=== PATIENT | female | born 1970 | race Caucasian/White ===

== ENCOUNTER 2022-07-15 20:00 | Inpatient (IN) | payer OTHER, SELFPAY ==
[2022-07-15] VITALS (22 sets, daily range): BP systolic 170–189; BP diastolic 85–128; PULSE 87–104; RESP 12–29; TEMP 36.9; O2SAT 97–100
--- NOTE | ~2022-07-15 | XR_ITS ---
EXAMINATION: XR chest 2V 07/15/2022 20:45 INDICATION: Shortness of breath. History of CHF. PROCEDURE: 2 view chest COMPARISON: No prior studies for comparison. FINDINGS: The lungs are clear. The cardiomediastinal silhouette is within normal limits. There are no pleural effusions. There is no pneumothorax suspected. IMPRESSION: 1: NO ACUTE CARDIOPULMONARY DISEASE. Reviewed, dictated and finalized at location A. 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
--- NOTE | ~2022-07-15 | US_ITS ---
US renal BI 07/16/2022 09:21 Procedure: Realtime transabdominal ultrasound of the kidneys and bladder. Indication: Acute renal insufficiency Comparison: No prior studies for comparison. Findings: Renal echotexture is normal bilaterally without hydronephrosis, contour deforming mass or r enal calculus. The right kidney measures 13.8 cm and left kidney measures 13.4 cm. Bladder within no rmal limits. Impression: 1: Unremarkable renal ultrasound. No stones, masses or hydronephrosis. Reviewed, dictated and finalized at location A. MOLDER Impression: 1: Unremarkable renal ultrasound. No stones, masses or hydronephrosis.
--- NOTE | 2022-07-15 20:09 | ECG_ITS ---
Measurements Intervals [place] Rate: 85 P: 57 MS: 161 QRS: 45 QRSD: 106 T: 42 QT: 389 QTc: 465 Interpretive Statements SINUS RHYTHM BASELINE ARTIFACT NONSPECIFIC ST ABNORMALITY BORDERLINE ECG NO PREVIOUS ECG AVAILABLE FOR COMPARISON Electronically Signed On 07-16-2022 14:02:37 SURVEILLANCE ANALYST by Lucho Morales M.D.
--- NOTE | 2022-07-15 20:26 | ED.GENADULT ---
HPI - General Adult General Chief complaint: Shortness of Breath/Dyspnea Stated complaint: SOB Time Seen by Provider: 07/15/22 20:13 Source: RN notes reviewed History of Present Illness HPI narrative: Patient presents emergency department from home via EMS for shortness of breath. Patient states has been feeling short of breath for the past 3 days. States that shortness of breath is associated with some chest pain described as a heaviness she states she is had 2 episodes of chest pain today that developed last approximately 20 minutes but denies any current chest pain states she has had no cough she denies any fever states she has been having swelling in her legs patient does have a history of congestive heart failure states she is taking Lasix and has not missed any doses Related Data Allergies Allergy/AdvReac Type Severity Reaction Status Date / Time codeine Allergy Unknown Verified 11/26/08 12:40 hydrocodone Allergy Unknown Verified 11/26/08 12:40 Review of Systems Review of Systems: Gen.: Denies fevers or chills ENT: Denies congestion Respiratory: Reports shortness of breath CV: Reports chest pain GI: Denies abdominal pain nausea, emesis or diarrhea Musculoskeletal: Denies back pain or muscle pain Neuro: Denies numbness, tingling, weakness or focal weakness Skin: Denies rash Except as documented, all other systems reviewed and negative [facility] Past Medical History Medical History CHF (congestive heart failure) Social History Social History Smoking status: Never smoker Exam Narrative: APPEARANCE: No acute distress, nontoxic, resting in bed EYES: EOMI HEENT: Normocephalic, atraumatic, OMM RESPIRATORY: No respiratory distress Clear to auscultation bilaterally with no rhonchi wheezing or rales. CARDIOVASCULAR: Regular rate and rhythm without murmurs rubs or gallops. ABDOMINAL: Soft, nontender, nondistended, no rebound or guarding MUSCULOSKELETAl: Moves all extremities. No clubbing, cyanosis 3+ edema of the bilateral lower extremities NEURO: Awake and alert. Following commands, speech normal, no focal deficits SKIN:: Warm, dry. No rashes lesions or abrasions PSYCHIATRIC: Normal affect/mood, Course Course Emergency Course: Discussed with Dr. Valentin agrees with admission Discussed with Dr. Morales agrees with consult Discussed with patient and family results of workup and diagnosis. Discussed need for admission. Patient and family understand and agree to current treatment plan Vital Signs Vital signs: Vital Signs Temperature 98.5 F 07/15/22 20:09 Pulse Rate 94 07/15/22 20:09 Respiratory Rate 14 07/15/22 20:09 Blood Pressure 177/128 H 07/15/22 20:09 Pulse Oximetry 100 07/15/22 20:09 Oxygen Delivery Room Air 07/15/22 20:09 Temperature 98.5 F 07/15/22 20:09 Pulse Rate 96 07/15/22 20:28 Respiratory Rate 14 07/15/22 20:09 Blood Pressure 177/128 H 07/15/22 20:09 Pulse Oximetry 100 07/15/22 20:09 Oxygen Delivery Room Air 07/15/22 20:29 Medical Decision Making Vital Signs Vital Signs: Vital Signs Temperature 98.5 F 07/15/22 20:09 Pulse Rate 94 07/15/22 20:09 Respiratory Rate 14 07/15/22 20:09 Blood Pressure 177/128 H 07/15/22 20:09 Pulse Oximetry 100 07/15/22 20:09 Oxygen Delivery Room Air 07/15/22 20:09 Temperature 98.5 F 07/15/22 20:09 Pulse Rate 96 07/15/22 20:28 Respiratory Rate 14 07/15/22 20:09 Blood Pressure 177/128 H 07/15/22 20:09 Pulse Oximetry 100 07/15/22 20:09 Oxygen Delivery Room Air 07/15/22 20:29 Lab Data 07/15/22 20:25 07/15/22 20:25 Labs: Lab Results 07/15/22 07/15/22 07/15/22 Range/Units 20:25 20:25 20:25 WBC 9.9 (4.5-10.0) K/mm3 RBC 2.73 L (4.2-5.4) M/mm3 Hgb 7.7 L (12.0-15.0) g/dL Hct 25.5 L (37.0-47.0) % MCV 93.
[2022-07-15 20:33] LABS: Basophils Absolute Auto 0.1 K/mm3 (0.0-0.1); Basophils Percent Auto 0.6 % (0.2-1.2); Eosinophils Absolute Auto 0.1 K/mm3 (0-0.3); Eosinophils Percent Auto 1.4 % (0-4.4); Hematocrit 25.5 % (37.0-47.0); Hemoglobin 7.7 g/dL (12.0-15.0); Immature Granulocyte Absolute 0.02 K/mm3 (0.00-0.031); Immature Granulocyte Percent A 0.2 % (0-0.5); Lymphocytes Absolute Auto 2.74 K/mm3 (0.9-3.2); Lymphocytes Percent Auto 27.8 % (18.3-44.2); Mean Corpuscular HGB Conc 30.2 g/dl (32-36); Mean Corpuscular Hemoglobin 28.2 pg (26-34); Mean Corpuscular Volume 93.4 fl (80-100); Mean Platelet Volume 11.4 fl (7.4-10.4); Monocytes Percent Auto 10.1 % (2.6-8.5); Neutrophils Absolute Auto 5.9 K/mm3 (1.3-6.7); Neutrophils Percent Auto 59.9 % (45.5-73.1); Platelet Count Result 229 k/mm3 (150-375); Red Blood Count 2.73 M/mm3 (4.2-5.4); Red Cell Distribution Width 15.9 % (11.5-14.5); White Blood Count 9.9 K/mm3 (4.5-10.0)
[2022-07-15 20:41] LABS: Alanine Aminotransferase 13 U/L (6-35); Albumin Level 3.4 g/dL (3.5-5.1); Alkaline Phosphatase 92 U/L (38-126); Anion Gap 8 mmol/L (8-16); Aspartate Amino Transferase 22 U/L (14-36); Bilirubin,Total 0.3 mg/dL (0.2-1.3); Blood Urea Nitrogen 31 mg/dL (7-17); Calcium 7.7 mg/dL (8.4-10.2); Carbon Dioxide 25 mmol/L (22-30); Chloride 108 mmol/L (98-107); Estimated CRCL calculation 27 ml/min; Estimated Glomerular Filt Rate 16; Glucose 91 mg/dL (65-110); Potassium 3.8 mmol/L (3.4-5.0); Sodium 141 mmol/L (137-145)
[2022-07-15 20:45] LABS: INR 1.1; Prothrombin Time 13.3 Seconds (11.1-14.7)
[2022-07-15 20:46] LABS: Partial Thromboplastin Time 35.5 SECONDS (22.3-36.8)
[2022-07-15 20:53] LABS: NT Pro B Type Natriuretic Pept 10500 pg/mL (5-100); Troponin I 0.014 ng/mL (0.000-0.034)
--- NOTE | 2022-07-15 22:07 | PM.IMHP ---
H&P: HPI History of Present Illness Date/Time: 07/15/22 22:07 Chief Complaint: 51 years old female with past medical history of hypertension CHF COPD hyperlipidemia chronic narcotic dependence presented to the hospital with shortness of breath started 3 days ago worsening gradually worsening with activity patient also have chest tightness aggravated with activity no radiation patient complains of intermittent cough she also have lower extremity edema at the ER patient was found to have BNP more than 10,000 creatinine of 3 hemoglobin of 7 patient was admitted to the hospital for evaluation and treatment of CHF exacerbation associated with probable acute renal failure and anemia Review of Systems Review of Systems: Twelve system review was done negative except above [facility] Past Medical History Medical History CHF (congestive heart failure) Social History Social History Smoking status: Never smoker Meds Home Medications and Allergies Allergies Allergy/AdvReac Type Severity Reaction Status Date / Time codeine Allergy Unknown Verified 11/26/08 12:40 hydrocodone Allergy Unknown Verified 11/26/08 12:40 Vital Signs Vital Signs - 24 hr 07/15/22 20:09 07/15/22 20:28 07/15/22 20:29 Temperature 98.5 F Pulse Rate 94 96 Respiratory Rate 14 Blood Pressure 177/128 H Pulse Oximetry 100 Oxygen Delivery Room Air Room Air Exam Narrative: GENERAL: Short of breath. HEAD: Normocephalic, atraumatic. NECK: Supple. No adenopathy, no masses. RESPIRATORY: Decreased air entry bilateral positive bilateral basal crackles. CARDIOVASCULAR: Regular rate and rhythm without murmurs, rubs, or gallops. Peripheral pulses 2+ and equal bilaterally. ABDOMINAL: Soft, nontender, nondistended, no hepatosplenomegaly. Normoactive BS. MUSCULOSKELETAL: Bilateral lower extremity edema. SKIN: Warm, dry, normal color. No rashes. NEURO: Moves all extremities PSYCHIATRIC: Appropriate mood and affect. Normal interaction. H&P: Results Labs Labs: Short CBC 07/15/22 Range/Units 20:25 WBC 9.9 (4.5-10.0) K/mm3 Hgb 7.7 L (12.0-15.0) g/dL Hct 25.5 L (37.0-47.0) % Plt Count 229 (150-375) k/mm3 BMP 07/15/22 20:25 Sodium 141 Potassium 3.8 Chloride 108 H Carbon Dioxide 25 BUN 31 H Creatinine 3.00 H Glucose 91 Calcium 7.7 L Cardiac Enzymes 07/15/22 Range/Units 20:25 Troponin I 0.014 (0.000-0.034) ng/mL Liver Function 07/15/22 Range/Units 20:25 Total Bilirubin 0.3 (0.2-1.3) mg/dL AST 22 (14-36) U/L ALT 13 (6-35) U/L Alkaline Phosphatase 92 (38-126) U/L Albumin 3.4 L (3.5-5.1) g/dL Assessment and Plan Assessment and plan (1) CHF (congestive heart failure): Code(s): I50.9 - Heart failure, unspecified Status: Acute Assessment and Plan: Acute CHF exacerbation Monitor intake and output IV Lasix Follow troponin Check TSH Check echo Cardiology consult (2) Elevated serum creatinine: Code(s): R79.89 - Other specified abnormal findings of blood chemistry Status: Acute Assessment and Plan: Probable acute renal on top of chronic failure probably related to CHF exacerbation patient stated that she has history of chronic renal disease but she is not aware of for last creatinine number Ultmann renal function Give IV diuresis Check renal ultrasound Get old records (3) Anemia: Code(s): D64.9 - Anemia, unspecified Status: Acute Assessment and Plan: Unknown baseline creatinine Transfuse if hemoglobin below 7 Occult blood negative in ER Monitor H&H Check iron study B12 folic acid Give IV Protonix for now Clear liquid diet NPO after midnight (4) Hypertension: Code(s): I10 - Essential (primary) hypertension Status: Acute Assessment and Plan: Pending home medication re
--- NOTE | 2022-07-15 22:21 | PCRCNOTE ---
Pt refused breathing TX.
[2022-07-15] MEDS: ASPIRIN 81 MG CHEWABLE TABLET 324 MG PO (22:54)
[2022-07-15] MEDS: ACETAMINOPHEN 325 MG TABLET 650 MG PO (22:56)
[2022-07-15] MEDS: FUROSEMIDE INJ 100 MG/10 ML VIAL 60 MG IV PUSH (22:56)
[2022-07-15] MEDS: PANTOPRAZOLE SODIUM IV 40 MG VIAL IV PUSH (22:58)
[2022-07-15 23:17] LABS: SARS-CoV-2 RNA PCR Negative
[2022-07-15 23:19] LABS: Appearance Urine Clear (Clear); Bilirubin Urine Negative (Negative); Blood Urine 2+ (Negative); Color Urine Yellow (Yellow); Glucose Urine UA Negative (Negative); Ketones Urine Negative (Negative); Leukocyte Esterase Ur Negative LEU/UL (Negative); Nitrate Urine Negative (Negative); Protein Urine 3+ mg/dL (Negative); Urobilinogen Urine 0.2 mg/dL (<2.0)
[2022-07-15 23:24] LABS: Mucus Urine Rare /lpf; RBC Urine 21-50 /hpf (0-2); Squamous Epithelial Cell Urine Few /hpf (Few)
[2022-07-15 23:25] LABS: Add Urine Microscopic? YES
[2022-07-15 23:33] LABS: Potassium Urine Random 24.2 meq/L; Sodium Urine Random 124 meq/L
[2022-07-16] VITALS (30 sets, daily range): BP systolic 109–161; BP diastolic 63–98; PULSE 76–101; RESP 17–24; TEMP 36.3–36.6; O2SAT 92–100; BMI 41.9
[2022-07-16 00:39] LABS: Hematocrit 26.8 % (37.0-47.0); Hemoglobin 8.2 g/dL (12.0-15.0)
[2022-07-16 00:48] LABS: Creatine Kinase 78 U/L (30-135); Magnesium 2.2 mg/dL (1.6-2.3); Uric Acid 7.7 mg/dL (2.5-7.5)
[2022-07-16 01:03] LABS: Iron 40 ug/dL (37-170)
[2022-07-16 01:13] LABS: Percent Iron Saturation 18 % (20-50)
[2022-07-16 01:33] LABS: Troponin I 0.015 ng/mL (0.000-0.034)
--- NOTE | 2022-07-16 03:41 | ADMGEN ---
This patient, Stefany Fletcher, was admitted to IMU Room 206-01 on 07/16/22 at 0315. Patient/family oriented to hospital policies and general routines including ID bracelet, bed and alarms, visiting hours, pain management, procedures, bathroom and other care routines, personal items, smoking policy, room service/diet, and visiting hours. Information on how to activate the Rapid Response Team has been discussed. Patient/Family are encouraged to report perceived risks to care and to ask questions if they do not understand what they are told or what they should do.
[2022-07-16] MEDS: cefTRIAXone 2 GM in SODIUM CHLORIDE 0.9% IV 100 ML 200 ML IVPB (04:38)
[2022-07-16] MEDS: methylPREDNISolone SOD SUCC 40 MG VIAL IV PUSH ×3 (04:38→21:16)
[2022-07-16 05:09] LABS: Total Protein Urine Random > 600 mg/dL
[2022-07-16 05:13] LABS: Basophils Absolute Auto 0.1 K/mm3 (0.0-0.1); Basophils Percent Auto 0.6 % (0.2-1.2); Eosinophils Absolute Auto 0.1 K/mm3 (0-0.3); Eosinophils Percent Auto 1.7 % (0-4.4); Hematocrit 24.8 % (37.0-47.0); Hemoglobin 7.5 g/dL (12.0-15.0); Immature Granulocyte Absolute 0.02 K/mm3 (0.00-0.031); Immature Granulocyte Percent A 0.2 % (0-0.5); Lymphocytes Absolute Auto 2.97 K/mm3 (0.9-3.2); Lymphocytes Percent Auto 35.7 % (18.3-44.2); Mean Corpuscular HGB Conc 30.2 g/dl (32-36); Mean Corpuscular Hemoglobin 28.5 pg (26-34); Mean Corpuscular Volume 94.3 fl (80-100); Mean Platelet Volume 11.6 fl (7.4-10.4); Monocytes Absolute Auto 0.8 K/mm3 (0.1-0.6); Neutrophils Absolute Auto 4.3 K/mm3 (1.3-6.7); Neutrophils Percent Auto 51.8 % (45.5-73.1); Platelet Count Result 219 k/mm3 (150-375); Red Blood Count 2.63 M/mm3 (4.2-5.4); Red Cell Distribution Width 15.9 % (11.5-14.5); White Blood Count 8.3 K/mm3 (4.5-10.0)
[2022-07-16 05:23] LABS: Alanine Aminotransferase 11 U/L (6-35); Albumin Level 3.2 g/dL (3.5-5.1); Alkaline Phosphatase 78 U/L (38-126); Anion Gap 8 mmol/L (8-16); Aspartate Amino Transferase 17 U/L (14-36); Bilirubin,Total 0.3 mg/dL (0.2-1.3); Blood Urea Nitrogen 29 mg/dL (7-17); Calcium 7.7 mg/dL (8.4-10.2); Carbon Dioxide 24 mmol/L (22-30); Chloride 106 mmol/L (98-107); Estimated CRCL calculation 28 ml/min; Estimated Glomerular Filt Rate 16; Glucose 81 mg/dL (65-110); Potassium 3.4 mmol/L (3.4-5.0); Sodium 138 mmol/L (137-145)
[2022-07-16 05:33] LABS: Troponin I 0.019 ng/mL (0.000-0.034)
[2022-07-16] MEDS: carvediloL 25 MG TABLET PO ×2 (08:37→21:17)
[2022-07-16] MEDS: amLODIPine BESYLATE 5 MG TABLET 10 MG PO (08:37)
[2022-07-16] MEDS: CALCIUM CARBONATE (OSCAL) 500 MG TABLET PO (08:37)
[2022-07-16] MEDS: FAMOTIDINE 20 MG TABLET PO ×2 (08:38→21:17)
[2022-07-16] MEDS: CITALOPRAM HYDROBROMIDE 20 MG TABLET 40 MG PO (08:38)
[2022-07-16] MEDS: FERROUS SULFATE 324 MG TABLET PO (08:38)
[2022-07-16] MEDS: hydrALAZINE HCL 50 MG TABLET 100 MG PO ×2 (08:39→15:12)
[2022-07-16] MEDS: clonazePAM (*CRX) 0.5 MG TABLET PO ×2 (08:40→17:12)
--- NOTE | 2022-07-16 11:06 | PCRCNOTE ---
Window of time for administration has passed. See next scheduled administration.
--- NOTE | 2022-07-16 11:19 | PM.CNCAR ---
Assessment and Plan Assessment and plan (1) Hypertension: Code(s): I10 - Essential (primary) hypertension Status: Acute Assessment and Plan: Uncontrolled presentation secondary to noncompliance with medications as she has been abdomen for 5 days. Resume antihypertensive medical therapy. (2) CHF (congestive heart failure): Code(s): I50.9 - Heart failure, unspecified Status: Acute Assessment and Plan: Possible mild decompensation presentation clinically relatively euvolemic. ProBNP elevated due to uncontrolled hypertension, severe anemia, acute on chronic kidney disease, as well as component of possible mild decompensated heart failure. On proBNP is further elevated compared to previous from 06/23/2022 noted at 5402. Troponins negative. Symptoms are not related to decompensated heart failure secondary to acute coronary syndrome. I do not see a previous echocardiogram or documentation of EF. Obtain 2D echocardiogram to assess LV systolic and diastolic function, valve pathology, LV wall thickness and chamber size. Recommendation to follow after review. Patient states she already has outpatient follow-up set up with Cardiology [facility]. She will keep this follow-up. Continue home cardiovascular medical therapy. No further invasive testing indicated at this time. May give dose of IV Lasix today transition back to oral regimen. Monitor input and output, daily weight. Low-sodium diet less than 2 g daily. BP control critical as is compliance with medications. (3) Acute kidney injury superimposed on chronic kidney disease: Code(s): N17.9 - Acute kidney failure, unspecified; N18.9 - Chronic kidney disease, unspecified Status: Acute Assessment and Plan: Creatinine 06/25/2022 3.0 06/01/2022 creatinine 2.3-2.5. Overall, renal function worse from May but stable over the past month. Defer to primary service and Nephrology. Avoid nephrotoxic agents. Counseled on avoidance of NSAID therapy as much as possible due to worsening renal function, hypertension and CHF risk. (4) Anemia: Code(s): D64.9 - Anemia, unspecified Status: Acute Assessment and Plan: Chronic severe anemia. No evidence for active bleed. Defer management to primary service. (5) COPD (chronic obstructive pulmonary disease): Code(s): J44.9 - Chronic obstructive pulmonary disease, unspecified Status: Acute Assessment and Plan: Per primary service. Clinically stable on room air. Outpatient sleep study. Follow-up with pulmonology as previously recommended. (6) Rheumatoid arthritis: Code(s): M06.9 - Rheumatoid arthritis, unspecified Status: Acute Assessment and Plan: Management per primary service. (7) Noncompliance: Code(s): Z91.199 - Patient's noncompliance with other medical treatment and regimen due to unspecified reason Status: Acute Assessment and Plan: Patient must remain compliant with medications, follow-up and recommendations. (8) Anxiety: Code(s): F41.9 - Anxiety disorder, unspecified Status: Acute Assessment and Plan: Per primary service. History of Present Illness History of Present Illness Consult date/time: Date of service: 07/16/22 11:19 Requesting physician: Sonny Valentin M.A., MD Consult reason: shortness of breath Reason For Visit: CHF,Chest Pain,Acute Renal Insufficiency,Anemia Narrative: Patient is a 51-year-old female with a history of chronic pain, COPD, hypertension, history of noncompliance, rheumatoid arthritis, panic disorder/anxiety, morbid obesity previously admitted to [facility] due to uncontrolled hypertension found to be severely anemic hemoglobin around 8, CKD creatinine 2.3-2.5, BNP over 5000, negative troponin who was initially treated with azithromycin for suspected pneumonia subsequently stopped and treated for COPD exacerbation. She was given or
[2022-07-16] MEDS: FUROSEMIDE INJ 100 MG/10 ML VIAL 60 MG IV PUSH ×2 (11:22→17:11)
[2022-07-16] MEDS: PANTOPRAZOLE SODIUM IV 40 MG VIAL IV PUSH ×2 (11:22→17:11)
[2022-07-16] MEDS: IPRATROPIUM BR 0.02% INH SOLN 0.5 MG/2.5 ML VIAL INHALATION (15:21)
[2022-07-16] MEDS: ALBUTEROL SULFATE NEB 2.5 MG/3 ML INH INHALATION (15:21)
--- NOTE | 2022-07-16 17:19 | PM.IMPN ---
Progress Note: A&P Assessment and Plan (1) CHF (congestive heart failure): Code(s): I50.9 - Heart failure, unspecified Status: Acute Assessment and Plan: Acute CHF exacerbation Monitor intake and output IV Lasix Follow troponin Check TSH Check echo Cardiology consult 07/16/2022 interval history: morbidly obese patient presented emergency department with complaint shortness of breath and elevated BNP concerning for congestive heart failure however seen by cardiology does not suspect as patient is euvolemic most likely elevated BNP stemming from chronic kidney disease, uncontrolled hypertension to further evaluate will do cardiac echo and further recommendation to follow, patient with acute on chronic kidney disease, renal ultrasound is essentially normal will consult gas combustion engineer for further recommendation. (2) Elevated serum creatinine: Code(s): R79.89 - Other specified abnormal findings of blood chemistry Status: Acute Assessment and Plan: Probable acute renal on top of chronic failure probably related to CHF exacerbation patient stated that she has history of chronic renal disease but she is not aware of for last creatinine number Ultmann renal function Give IV diuresis Check renal ultrasound Get old records (3) Anemia: Code(s): D64.9 - Anemia, unspecified Status: Acute Assessment and Plan: Unknown baseline creatinine Transfuse if hemoglobin below 7 Occult blood negative in ER Monitor H&H Check iron study B12 folic acid Give IV Protonix for now Clear liquid diet NPO after midnight (4) Hypertension: Code(s): I10 - Essential (primary) hypertension Status: Acute Assessment and Plan: Pending home medication reconciliation (5) COPD (chronic obstructive pulmonary disease): Code(s): J44.9 - Chronic obstructive pulmonary disease, unspecified Status: Acute Assessment and Plan: Acute COPD exacerbation nebulizer treatment steroid antibiotics (6) Chest pain: Code(s): R07.9 - Chest pain, unspecified Status: Acute Assessment and Plan: Serial troponin Cardiology consult Discussed with ER physician Probably related to CHF and anemia Follow echo results (7) Rheumatoid arthritis: Code(s): M06.9 - Rheumatoid arthritis, unspecified Status: Acute Assessment and Plan: Patient on steroid at home Subjective Date/time seen: 07/16/22 17:19 HPI Narrative 51 years old female with past medical history of hypertension CHF COPD hyperlipidemia chronic narcotic dependence presented to the hospital with shortness of breath started 3 days ago worsening gradually worsening with activity patient also have chest tightness aggravated with activity no radiation patient complains of intermittent cough she also have lower extremity edema at the ER patient was found to have BNP more than 10,000 creatinine of 3 hemoglobin of 7 patient was admitted to the hospital for evaluation and treatment of CHF exacerbation associated with probable acute renal failure and anemia 07/16/2022 interval history: morbidly obese patient presented emergency department with complaint shortness of breath and elevated BNP concerning for congestive heart failure however seen by cardiology does not suspect as patient is euvolemic most likely elevated BNP stemming from chronic kidney disease, uncontrolled hypertension to further evaluate will do cardiac echo and further recommendation to follow, patient with acute on chronic kidney disease, renal ultrasound is essentially normal will consult gas combustion engineer for further recommendation. Exam Narrative: morbidly obese Patient is comfortable, NAD HEENT: eyes are clear and none icteric LUNGS:CTA HEART: RR S1S2 ABD: BS+, Soft and nontender Lower extremities: no edema SKIN: nonjaundiced Neuro: grossly intact. Objective Data Vital Signs Vital Signs: Vital Signs - 24 hr 07/15/22 20:0
[2022-07-16] MEDS: ATORVASTATIN 40 MG TABLET PO (21:16)
[2022-07-16] MEDS: traZODone HCL 50 MG TABLET PO (21:17)
[2022-07-16] MEDS: ACETAMINOPHEN 325 MG TABLET 650 MG PO (21:19)
--- NOTE | 2022-07-16 22:02 | ECHO_ITS ---
Patient Info Name: Stefany Fletcher Age: 51 years : 1970 Gender: Female Ht: 68 in Wt: 275 lbs BSA: 2.51 m2 HR: 72 bpm BP: 158 / 73 mmHg Heart Rhythm: Sinus Rhythm Exam Date: 07/16/2022 1:20 PM Exam Location: [facility] Patient Status: Inpatient Admit Date: 07/15/2022 Staff Ordering Physician: Sonny Valentin M.A., MD Billet Assembler: Amado Olivier RDCS Attending Provider: Sonny Valentin M.A., MD Referring Physician: Naveen MATTHEW; Exam Type: CA echo doppler color flow Study Info Indications R06.02 - Shortness of breath Complete two-dimensional, color flow and Doppler transthoracic echocardiogram is performed. Summary 1. Complete two-dimensional, color flow and Doppler transthoracic echocardiogram is performed. 2. Left ventricular chamber dimension is normal. 3. Left ventricular systolic function is normal, estimated at 60-65%. 4. There is mildly increased left ventricular wall thickness. 5. Left ventricular septal wall motion is abnormal with septal motion related to bundle branch block. 6. The left ventricular diastolic function is grade II diastolic dysfunction. 7. E/e' 19.1 is moderately elevated. 8. There is no aortic valve stenosis. 9. There is trace mitral valve regurgitation. Left Ventricle Left ventricular chamber dimension is normal. Left ventricular systolic function is normal, estimated at 60-65%. There is mildly increased left ventricular wall thickness. Left ventricular septal wall motion is abnormal with septal motion related to bundle branch block. The left ventricular diastolic function is grade II diastolic dysfunction. E/e' 19.1 is moderately elevated. Right Ventricle Right ventricular chamber dimension is normal. Right ventricular systolic function is normal. Left Atria Left atrial chamber dimension is moderately enlarged. Right Atria Right atrial chamber dimension is mildly enlarged. Aortic Valve The aortic valve is not well visualized. There is no aortic valve stenosis. There is no aortic valve regurgitation. Pulmonic Valve The pulmonic valve is not well visualized. Mitral Valve The mitral valve has thickened leaflets. There is trace mitral valve regurgitation. There is severe mitral valve calcification. Tricuspid Valve The tricuspid valve leaflets are normal. There is trace tricuspid valve regurgitation. Unable to estimate PA systolic pressure due to poor spectral resolution of tricuspid regurgitant jet velocity. Pericardium/Pleural The pericardium appears epicardial fat pad. There is trivial pericardial effusion. Inferior Vena Cava Dilated inferior vena cava with <50% collapse upon inspiration consistent with elevated right atrial pressure, 10 mmHg. Aorta The aortic root size at the sinus of Valsalva is normal. There is mild aortic atherosclerosis. Left Ventricular Outflow Tract Name Value Normal LVOT 2D LVOT Diameter 2.0 cm LVOT Doppler LVOT Peak Gradient 9 mmHg LVOT Mean Gradient 5 mmHg LVOT VTI 33 cm LVO
[2022-07-16 22:46] LABS: Basophils Percent Auto 0.2 % (0.2-1.2); Hematocrit 26.3 % (37.0-47.0); Hemoglobin 8.2 g/dL (12.0-15.0); Immature Granulocyte Absolute 0.14 K/mm3 (0.00-0.031); Immature Granulocyte Percent A 1.5 % (0-0.5); Lymphocytes Absolute Auto 1.12 K/mm3 (0.9-3.2); Mean Corpuscular HGB Conc 31.2 g/dl (32-36); Mean Corpuscular Hemoglobin 28.9 pg (26-34); Mean Corpuscular Volume 92.6 fl (80-100); Mean Platelet Volume 11.5 fl (7.4-10.4); Monocytes Absolute Auto 0.1 K/mm3 (0.1-0.6); Monocytes Percent Auto 1.2 % (2.6-8.5); Neutrophils Absolute Auto 7.9 K/mm3 (1.3-6.7); Neutrophils Percent Auto 85.1 % (45.5-73.1); Platelet Count Result 260 k/mm3 (150-375); Red Blood Count 2.84 M/mm3 (4.2-5.4); Red Cell Distribution Width 15.6 % (11.5-14.5); White Blood Count 9.3 K/mm3 (4.5-10.0)
[2022-07-16 23:00] LABS: Magnesium 2.1 mg/dL (1.6-2.3)
[2022-07-17] VITALS (14 sets, daily range): BP systolic 142–164; BP diastolic 61–94; PULSE 65–91; RESP 16–22; TEMP 36.4–36.7; O2SAT 95–99
[2022-07-17] MEDS: cefTRIAXone 2 GM in SODIUM CHLORIDE 0.9% IV 100 ML 200 ML IVPB (03:36)
[2022-07-17] MEDS: methylPREDNISolone SOD SUCC 40 MG VIAL IV PUSH ×3 (03:36→17:47)
[2022-07-17] MEDS: CALCIUM CARBONATE (OSCAL) 500 MG TABLET PO (08:18)
[2022-07-17] MEDS: amLODIPine BESYLATE 5 MG TABLET 10 MG PO (08:18)
[2022-07-17] MEDS: carvediloL 25 MG TABLET PO ×2 (08:19→20:02)
[2022-07-17] MEDS: CITALOPRAM HYDROBROMIDE 20 MG TABLET 40 MG PO (08:19)
[2022-07-17] MEDS: FAMOTIDINE 20 MG TABLET PO ×2 (08:19→20:02)
[2022-07-17] MEDS: clonazePAM (*CRX) 0.5 MG TABLET PO ×2 (08:19→16:59)
[2022-07-17] MEDS: FERROUS SULFATE 324 MG TABLET PO (08:19)
[2022-07-17] MEDS: hydrALAZINE HCL 50 MG TABLET 100 MG PO ×3 (08:19→16:59)
[2022-07-17] MEDS: PANTOPRAZOLE SODIUM IV 40 MG VIAL IV PUSH ×2 (08:20→16:59)
[2022-07-17] MEDS: FUROSEMIDE INJ 100 MG/10 ML VIAL 60 MG IV PUSH (08:20)
[2022-07-17] MEDS: IPRATROPIUM BR 0.02% INH SOLN 0.5 MG/2.5 ML VIAL INHALATION ×2 (09:17→14:50)
[2022-07-17] MEDS: ALBUTEROL SULFATE NEB 2.5 MG/3 ML INH INHALATION ×2 (09:17→14:50)
[2022-07-17 10:39] LABS: Albumin Level 3.5 g/dL (3.5-5.1); Anion Gap 10 mmol/L (8-16); Blood Urea Nitrogen 46 mg/dL (7-17); Calcium 7.9 mg/dL (8.4-10.2); Carbon Dioxide 21 mmol/L (22-30); Chloride 106 mmol/L (98-107); Estimated CRCL calculation 27 ml/min; Estimated Glomerular Filt Rate 16; Glucose 180 mg/dL (65-110); Phosphorus 7.2 mg/dL (2.5-4.5); Potassium 4.4 mmol/L (3.4-5.0); Sodium 137 mmol/L (137-145)
--- NOTE | 2022-07-17 12:23 | PM.PNCARD ---
Progress Note: A&P Assessment and Plan (1) CHF (congestive heart failure): Code(s): I50.9 - Heart failure, unspecified Status: Acute Assessment and Plan: Patient appears to be clinically euvolemic at this time. Discontinue IV Lasix. Change to Lasix 80 mg p.o. daily. Monitor renal function electrolytes. Echocardiogram reviewed, preserved LV systolic function grade due to diastolic dysfunction mild LVH, unable to estimate PA systolic pressures. Dilated IVC. Patient will follow-up with [facility] for cardiology follow-up as an outpatient as previously set. Will see as needed. Please do not hesitate contact us with additional questions or concerns. Disposition per hospitalist service. (2) Hypertension: Code(s): I10 - Essential (primary) hypertension Status: Acute Assessment and Plan: Uncontrolled presentation secondary to noncompliance with medications as she has been abdomen for 5 days. Resume antihypertensive medical therapy. (3) Acute kidney injury superimposed on chronic kidney disease: Code(s): N17.9 - Acute kidney failure, unspecified; N18.9 - Chronic kidney disease, unspecified Status: Acute Assessment and Plan: Creatinine 06/25/2022 3.0 06/01/2022 creatinine 2.3-2.5. Overall, renal function worse from May but stable over the past month. Defer to primary service and Nephrology. Avoid nephrotoxic agents. Counseled on avoidance of NSAID therapy as much as possible due to worsening renal function, hypertension and CHF risk. Creatinine slightly increased 3.1. Nephrology consultation appreciated. (4) Anemia: Code(s): D64.9 - Anemia, unspecified Status: Acute Assessment and Plan: Chronic severe anemia. No evidence for active bleed. Defer management to primary service. H&H stable, improved. No indication for transfusion at this time. Discussed with the patient. She verbalized understanding and agreed. (5) COPD (chronic obstructive pulmonary disease): Code(s): J44.9 - Chronic obstructive pulmonary disease, unspecified Status: Acute Assessment and Plan: Per primary service. Clinically stable on room air. Outpatient sleep study. Follow-up with pulmonology as previously recommended. (6) Rheumatoid arthritis: Code(s): M06.9 - Rheumatoid arthritis, unspecified Status: Acute Assessment and Plan: Management per primary service. (7) Noncompliance: Code(s): Z91.199 - Patient's noncompliance with other medical treatment and regimen due to unspecified reason Status: Acute Assessment and Plan: Patient must remain compliant with medications, follow-up and recommendations. (8) Anxiety: Code(s): F41.9 - Anxiety disorder, unspecified Status: Acute Assessment and Plan: Per primary service. Subjective Date/time seen: Date of service: 07/17/22 12:23 Follow-up for uncontrolled hypertension, shortness of breath Patient feels well. She denies shortness of breath, dizziness, chest pain or palpitation. No new issues overnight. Edema is improved. She states she has no problems and is looking forward to discharge. She is apparently with awaiting placement. Sinus rhythm on telemetry. Review of Systems Review of Systems: All systems reviewed & are unremarkable except as noted in HPI and below Constitutional: Constitutional: Reports as per HPI and Reports no additional constitutional complaints Eyes: Eyes: Reports as per HPI and Reports no additional eye complaints ENT: Reports system reviewed and no additional complaints, except as documented and Reports as per HPI Cardiovascular: Cardiovascular: Reports as per HPI and Reports no additional cardiovascular complaints Respiratory: Respiratory: Reports as per HPI and Reports no additional respiratory complaints Gastrointestinal: Gastrointestinal: Reports as per HPI and Reports no additional gastrointestinal com
--- NOTE | 2022-07-17 12:54 | P.CONNP_ITS ---
Assessment and Plan Assessment and plan (1) CKD (chronic kidney disease): Code(s): N18.9 - Chronic kidney disease, unspecified Status: Chronic Assessment and Plan: * evidence of renal insufficiency/kidney disease that dates back to March 2022 * creatinine has ranged from 2.2 - 3.3mg/dl in that time frame * has seen several nephrologists in that time frame (Dr. Lara, Dr. Vidal, [facility], and Dr. Lara) * from review of electronic records, summary is as follows: * creatinine in June 2021 was normal (0.9mg/dl) * creatinine in March 2022 was 2.2mg/dl * creatinine 2.3 - 2.4mg/dl in April 2022 * creatinine 3.19mg/dl in May 2022 * creatinine 3.0 - 3.3mg/dl in June 2022 * extensive testing/serological work-up done on April 2022 * NORA/GBM Antibody/ANCA/ENVIRONMENTAL PROGRAMS SPECIALIST/Sjogren's (SSA/SSB)/García (ABBI)/Antiscleroderma- 70 Antibody -- all negative * Complement C3/Complement C4 -- negative * Cryoblobulin negative * Anti-PLA2R negative * 6.72 grams of proteinuria noted * no evidence of paraproteinemia by SPEP * known history of high dose NSAID use for the last several years * she is suppose to follow-up with Dr. Lara following her hospitalization at [facility] (from June 2022) * suspect hypertension and possibly chronic NSAID use to blame for CKD * given her nephrotic range proteinuria, consider renal biopsy for definitive diagonsis (could be done as an outpatient) * check CKD parameters (PTH, 25-OH Vitamin D...etc) * follow trend of repeat labs and UOP (2) Hypertension: Code(s): I10 - Essential (primary) hypertension Status: Chronic Assessment and Plan: * uncontrolled on admission * reports out of BP medications for ~ 5 days prior to presentation * BP doing better with restart of BP medications * would probably avoid overcontrol of BP for fear to causing renal hypoperfusion * follow trend of hemodynamics (3) Anemia: Code(s): D64.9 - Anemia, unspecified Status: Acute Assessment and Plan: * possibly related to CKD * evidence of iron deficiency by anemia studies * consider IV venofer while hospitalized * consider Epogen therapy * follow trend of H/H (4) CHF (congestive heart failure): Code(s): I50.9 - Heart failure, unspecified Status: Acute Assessment and Plan: * Echo here and at other hospitals demonstrate diastolic dysfunction with preserved EF * Cardiology recommendations noted * resumed of oral diuretics * follow I/Os and daily weights (5) Noncompliance: Code(s): Z91.199 - Patient's noncompliance with other medical treatment and regimen due to unspecified reason Status: Acute Assessment and Plan: * this was re-enforced to patient Long and extensive discussion (> 20 minutes) with patient regarding her renal dysfunction as well as review of her extensive electronic medical records over the last 4 months including her last 3 hospitalizations with subsequent testing/labs as outlined below. Would presume that she will follow-up with Dr. Lara since she saw him on her last hospitalization in June 2022. Will continue to follow. History of Present Illness Reason for Consult Consult date: 07/17/22 Reason for consult: chronic renal failure Chief Complaint Chief complaint: CHF,Chest Pain,Acute Renal Insufficiency,Anemia History of Present Illness Narrative: The patient is a 51-year-old female with a past medical history as outlined below who presented to [facility] Emergency
--- NOTE | 2022-07-17 12:54 | PM.CNNEP ---
Assessment and Plan Assessment and plan (1) CKD (chronic kidney disease): Code(s): N18.9 - Chronic kidney disease, unspecified Status: Chronic Assessment and Plan: evidence of renal insufficiency/kidney disease that dates back to March 2022 creatinine has ranged from 2.2 - 3.3mg/dl in that time frame has seen several nephrologists in that time frame (Dr. Lara, Dr. Vidal, [facility], and Dr. Lara) from review of electronic records, summary is as follows: creatinine in June 2021 was normal (0.9mg/dl) creatinine in March 2022 was 2.2mg/dl creatinine 2.3 - 2.4mg/dl in April 2022 creatinine 3.19mg/dl in May 2022 creatinine 3.0 - 3.3mg/dl in June 2022 extensive testing/serological work-up done on April 2022 NORA/GBM Antibody/ANCA/DINING CHAIR SEAT CUSHION TRIMMER/Sjogren's (SSA/SSB)/García (ABBI)/Antiscleroderma-70 Antibody -- all negative Complement C3/Complement C4 -- negative Cryoblobulin negative Anti-PLA2R negative 6.72 grams of proteinuria noted no evidence of paraproteinemia by SPEP known history of high dose NSAID use for the last several years she is suppose to follow-up with Dr. Lara following her hospitalization at [facility] (from June 2022) suspect hypertension and possibly chronic NSAID use to blame for CKD given her nephrotic range proteinuria, consider renal biopsy for definitive diagonsis (could be done as an outpatient) check CKD parameters (PTH, 25-OH Vitamin D...etc) follow trend of repeat labs and UOP (2) Hypertension: Code(s): I10 - Essential (primary) hypertension Status: Chronic Assessment and Plan: uncontrolled on admission reports out of BP medications for ~ 5 days prior to presentation BP doing better with restart of BP medications would probably avoid overcontrol of BP for fear to causing renal hypoperfusion follow trend of hemodynamics (3) Anemia: Code(s): D64.9 - Anemia, unspecified Status: Acute Assessment and Plan: possibly related to CKD evidence of iron deficiency by anemia studies consider IV venofer while hospitalized consider Epogen therapy follow trend of H/H (4) CHF (congestive heart failure): Code(s): I50.9 - Heart failure, unspecified Status: Acute Assessment and Plan: Echo here and at other hospitals demonstrate diastolic dysfunction with preserved EF Cardiology recommendations noted resumed of oral diuretics follow I/Os and daily weights (5) Noncompliance: Code(s): Z91.199 - Patient's noncompliance with other medical treatment and regimen due to unspecified reason Status: Acute Assessment and Plan: this was re-enforced to patient Long and extensive discussion (> 20 minutes) with patient regarding her renal dysfunction as well as review of her extensive electronic medical records over the last 4 months including her last 3 hospitalizations with subsequent testing/labs as outlined below. Would presume that she will follow-up with Dr. Lara since she saw him on her last hospitalization in June 2022. Will continue to follow. History of Present Illness Reason for Consult Consult date: 07/17/22 Reason for consult: chronic renal failure Chief Complaint Chief complaint: CHF,Chest Pain,Acute Renal Insufficiency,Anemia History of Present Illness Narrative: The patient is a 51-year-old female with a past medical history as outlined below who presented to [facility] Emergency room with complaints of shortness of breath. The patient reports that her shortness of breath seemed to start about three days ago and has been persistently and gradually worsening with activity as well as at rest. Associated symptoms include chest tightness as well as an intermittent cough and an increase in lower extremity edema. The chest tightness / pain seem to last about 20 min which he described as a heaviness with no apparent radiation
--- NOTE | 2022-07-17 15:02 | PM.IMPN ---
Progress Note: A&P Assessment and Plan (1) CHF (congestive heart failure): Code(s): I50.9 - Heart failure, unspecified Status: Acute Assessment and Plan: Acute CHF exacerbation Monitor intake and output IV Lasix Follow troponin Check TSH Check echo Cardiology consult 07/17/2022 interval history: morbidly obese patient presented emergency department with complaint shortness of breath and elevated BNP concerning for congestive heart failure however seen by cardiology does not suspect as patient is euvolemic most likely elevated BNP stemming from chronic kidney disease, uncontrolled hypertension to further evaluate, cardiac echo showed preserved LV function with EF 65% and grade 2 diastolic dysfunction, patient with acute on chronic kidney disease, renal ultrasound is essentially normal, patient is seen by retail property manager for further recommendation to follow. (2) Elevated serum creatinine: Code(s): R79.89 - Other specified abnormal findings of blood chemistry Status: Acute Assessment and Plan: Probable acute renal on top of chronic failure probably related to CHF exacerbation patient stated that she has history of chronic renal disease but she is not aware of for last creatinine number Ultmann renal function Give IV diuresis Check renal ultrasound Get old records (3) Anemia: Code(s): D64.9 - Anemia, unspecified Status: Acute Assessment and Plan: Unknown baseline creatinine Transfuse if hemoglobin below 7 Occult blood negative in ER Monitor H&H Check iron study B12 folic acid Give IV Protonix for now Clear liquid diet NPO after midnight (4) Hypertension: Code(s): I10 - Essential (primary) hypertension Status: Acute Assessment and Plan: Pending home medication reconciliation (5) COPD (chronic obstructive pulmonary disease): Code(s): J44.9 - Chronic obstructive pulmonary disease, unspecified Status: Acute Assessment and Plan: Acute COPD exacerbation nebulizer treatment steroid antibiotics (6) Chest pain: Code(s): R07.9 - Chest pain, unspecified Status: Acute Assessment and Plan: Serial troponin Cardiology consult Discussed with ER physician Probably related to CHF and anemia Follow echo results (7) Rheumatoid arthritis: Code(s): M06.9 - Rheumatoid arthritis, unspecified Status: Acute Assessment and Plan: Patient on steroid at home Subjective Date/time seen: 07/17/22 15:02 07/17/2022 interval history: morbidly obese patient presented emergency department with complaint shortness of breath and elevated BNP concerning for congestive heart failure however seen by cardiology does not suspect as patient is euvolemic most likely elevated BNP stemming from chronic kidney disease, uncontrolled hypertension to further evaluate, cardiac echo showed preserved LV function with EF 65% and grade 2 diastolic dysfunction, patient with acute on chronic kidney disease, renal ultrasound is essentially normal, patient is seen by retail property manager for further recommendation to follow. Exam Narrative: morbidly obese Patient is comfortable, NAD HEENT: eyes are clear and none icteric LUNGS:CTA HEART: RR S1S2 ABD: BS+, Soft and nontender Lower extremities: no edema SKIN: nonjaundiced Neuro: grossly intact. Objective Data Vital Signs Vital Signs: Vital Signs - 24 hr 07/16/22 15:21 07/16/22 15:26 07/16/22 15:30 Temperature Pulse Rate 82 82 77 Respiratory Rate 18 18 18 Blood Pressure Pulse Oximetry 98 Oxygen Delivery Room Air 07/16/22 16:00 07/16/22 16:00 07/16/22 16:00 Temperature 97.4 F L Pulse Rate 83 85 Respiratory Rate 24 H Blood Pressure 146/71 H Pulse Oximetry 100 96 Oxygen Delivery Room Air 07/16/22 18:00 07/16/22 20:00 07/16/22 21:17 Temperature 97.6 F Pulse Rate 87 79 89 Respiratory Rate 24 H Blood Pressure 155/98 H Pulse Oximetry 9
--- NOTE | 2022-07-17 17:27 | PC.NURSE ---
PT transferred via wheelchair and staff to [facility]. Belongings placed at bedside. Pt orientated to Room and Call light. [facility] aware of pt arrival.
[2022-07-17] MEDS: ATORVASTATIN 40 MG TABLET PO (20:02)
[2022-07-17] MEDS: traZODone HCL 50 MG TABLET PO (20:02)
[2022-07-17 21:05] LABS: Basophils Percent Auto 0.2 % (0.2-1.2); Hematocrit 24.9 % (37.0-47.0); Hemoglobin 7.6 g/dL (12.0-15.0); Immature Granulocyte Absolute 0.18 K/mm3 (0.00-0.031); Immature Granulocyte Percent A 1.2 % (0-0.5); Lymphocytes Absolute Auto 1.27 K/mm3 (0.9-3.2); Lymphocytes Percent Auto 8.2 % (18.3-44.2); Mean Corpuscular HGB Conc 30.5 g/dl (32-36); Mean Corpuscular Hemoglobin 28.6 pg (26-34); Mean Corpuscular Volume 93.6 fl (80-100); Mean Platelet Volume 11.6 fl (7.4-10.4); Monocytes Absolute Auto 0.4 K/mm3 (0.1-0.6); Monocytes Percent Auto 2.8 % (2.6-8.5); Neutrophils Absolute Auto 13.6 K/mm3 (1.3-6.7); Neutrophils Percent Auto 87.6 % (45.5-73.1); Platelet Count Result 250 k/mm3 (150-375); Red Blood Count 2.66 M/mm3 (4.2-5.4); Red Cell Distribution Width 15.9 % (11.5-14.5); White Blood Count 15.5 K/mm3 (4.5-10.0)
[2022-07-17 21:19] LABS: Magnesium 2.1 mg/dL (1.6-2.3)
[2022-07-18] VITALS (9 sets, daily range): BP systolic 141–161; BP diastolic 69–91; PULSE 63–83; RESP 16–18; TEMP 36.3–36.8; O2SAT 91–96
[2022-07-18] MEDS: methylPREDNISolone SOD SUCC 40 MG VIAL IV PUSH ×3 (04:26→18:15)
[2022-07-18] MEDS: cefTRIAXone 2 GM in SODIUM CHLORIDE 0.9% IV 100 ML 200 ML IVPB (04:27)
[2022-07-18 07:59] LABS: Vitamin D 25 Hydroxy 34.8 ng/mL
[2022-07-18] MEDS: IPRATROPIUM BR 0.02% INH SOLN 0.5 MG/2.5 ML VIAL INHALATION ×3 (08:06→19:50)
[2022-07-18] MEDS: ALBUTEROL SULFATE NEB 2.5 MG/3 ML INH INHALATION ×3 (08:07→19:51)
--- NOTE | 2022-07-18 08:30 | P.CDI_ITS ---
CDI Query Clarified Diagnosis Clarified Diagnosis: most likely patient had acute on chronic diastolic congestive heart failure <Jarad Ponce MD - Last Filed: 08/03/22 17:15> Provider Comments Patient with documented history of CHF. CHF noted on the problem list. Patient taking Lasix. Patient with noted edema and shortness of breath. Please specify type and acuity of heart failure if known. * Acute * Chronic * Acute on Chronic * Unknown * Systolic * Diastolic * Combined Systolic and Diastolic * Unknown <Veena Phillip RN - Last Filed: 07/18/22 08:35>
[2022-07-18] MEDS: hydrALAZINE HCL 50 MG TABLET 100 MG PO ×3 (08:47→16:43)
[2022-07-18] MEDS: amLODIPine BESYLATE 5 MG TABLET 10 MG PO (08:47)
[2022-07-18] MEDS: FAMOTIDINE 20 MG TABLET PO ×2 (08:48→20:16)
[2022-07-18] MEDS: PANTOPRAZOLE SODIUM IV 40 MG VIAL IV PUSH ×2 (08:48→16:44)
[2022-07-18] MEDS: CITALOPRAM HYDROBROMIDE 20 MG TABLET 40 MG PO (08:48)
[2022-07-18] MEDS: CALCIUM CARBONATE (OSCAL) 500 MG TABLET PO (08:48)
[2022-07-18] MEDS: FUROSEMIDE 80 MG TABLET PO (08:48)
[2022-07-18] MEDS: carvediloL 25 MG TABLET PO ×2 (08:48→20:16)
[2022-07-18] MEDS: FERROUS SULFATE 324 MG TABLET PO (08:48)
[2022-07-18] MEDS: clonazePAM (*CRX) 0.5 MG TABLET PO ×2 (08:50→16:44)
[2022-07-18 09:07] LABS: Albumin Level 3.7 g/dL (3.5-5.1); Anion Gap 11 mmol/L (8-16); Blood Urea Nitrogen 62 mg/dL (7-17); Calcium 7.6 mg/dL (8.4-10.2); Carbon Dioxide 24 mmol/L (22-30); Chloride 100 mmol/L (98-107); Estimated CRCL calculation 25 ml/min; Estimated Glomerular Filt Rate 14; Glucose 134 mg/dL (65-110); Phosphorus 7.1 mg/dL (2.5-4.5); Potassium 4.3 mmol/L (3.4-5.0); Sodium 135 mmol/L (137-145)
[2022-07-18 09:08] LABS: Hematocrit 25.7 % (37.0-47.0); Hemoglobin 7.9 g/dL (12.0-15.0); Mean Corpuscular HGB Conc 30.7 g/dl (32-36); Mean Corpuscular Hemoglobin 28.8 pg (26-34); Mean Corpuscular Volume 93.8 fl (80-100); Mean Platelet Volume 11.9 fl (7.4-10.4); Platelet Count Result 274 k/mm3 (150-375); Red Blood Count 2.74 M/mm3 (4.2-5.4); White Blood Count 15.6 K/mm3 (4.5-10.0)
[2022-07-18] MEDS: TOLNAFTATE 1% POWDER 45 GM BTL 1 APPLIC TOPICAL ×2 (12:08→20:17)
--- NOTE | 2022-07-18 12:22 | PM.IMPN ---
Progress Note: A&P Assessment and Plan (1) CHF (congestive heart failure): Code(s): I50.9 - Heart failure, unspecified Status: Acute Assessment and Plan: Acute CHF exacerbation Monitor intake and output IV Lasix Follow troponin Check TSH Check echo Cardiology consult 07/18/2022 interval history: morbidly obese patient presented emergency department with complaint shortness of breath and elevated BNP concerning for congestive heart failure however seen by cardiology does not suspect as patient is euvolemic most likely elevated BNP stemming from chronic kidney disease, uncontrolled hypertension to further evaluate, cardiac echo showed preserved LV function with EF 65% and grade 2 diastolic dysfunction, today seen in process inspector reduced lasix to 40mg PO from 80mg PO upon discharge as patient kidney function is worsenign, patient with acute on chronic kidney disease, renal ultrasound is essentially normal, patient is seen by buttermilk drier operator for further recommendation to follow. (2) Elevated serum creatinine: Code(s): R79.89 - Other specified abnormal findings of blood chemistry Status: Acute Assessment and Plan: Probable acute renal on top of chronic failure probably related to CHF exacerbation patient stated that she has history of chronic renal disease but she is not aware of for last creatinine number Ultmann renal function Give IV diuresis Check renal ultrasound Get old records (3) Anemia: Code(s): D64.9 - Anemia, unspecified Status: Acute Assessment and Plan: Unknown baseline creatinine Transfuse if hemoglobin below 7 Occult blood negative in ER Monitor H&H Check iron study B12 folic acid Give IV Protonix for now Clear liquid diet NPO after midnight (4) Hypertension: Code(s): I10 - Essential (primary) hypertension Status: Chronic Assessment and Plan: Pending home medication reconciliation (5) COPD (chronic obstructive pulmonary disease): Code(s): J44.9 - Chronic obstructive pulmonary disease, unspecified Status: Acute Assessment and Plan: Acute COPD exacerbation nebulizer treatment steroid antibiotics (6) Chest pain: Code(s): R07.9 - Chest pain, unspecified Status: Acute Assessment and Plan: Serial troponin Cardiology consult Discussed with ER physician Probably related to CHF and anemia Follow echo results (7) Rheumatoid arthritis: Code(s): M06.9 - Rheumatoid arthritis, unspecified Status: Acute Assessment and Plan: Patient on steroid at home Subjective Date/time seen: 07/18/22 12:22 07/18/2022 interval history: morbidly obese patient presented emergency department with complaint shortness of breath and elevated BNP concerning for congestive heart failure however seen by cardiology does not suspect as patient is euvolemic most likely elevated BNP stemming from chronic kidney disease, uncontrolled hypertension to further evaluate, cardiac echo showed preserved LV function with EF 65% and grade 2 diastolic dysfunction, today seen in process inspector reduced lasix to 40mg PO from 80mg PO upon discharge as patient kidney function is worsenign, patient with acute on chronic kidney disease, renal ultrasound is essentially normal, patient is seen by buttermilk drier operator for further recommendation to follow. Exam Narrative: morbidly obese Patient is comfortable, NAD HEENT: eyes are clear and none icteric LUNGS:CTA HEART: RR S1S2 ABD: BS+, Soft and nontender Lower extremities: no edema SKIN: nonjaundiced Neuro: grossly intact. Objective Data Vital Signs Vital Signs: Vital Signs - 24 hr 07/17/22 16:00 07/17/22 14:50 07/17/22 15:00 Temperature 97.8 F Pulse Rate 76 90 91 Respiratory Rate 16 20 20 Blood Pressure 142/73 H Pulse Oximetry 96 Oxygen Delivery 07/17/22 20:02 07/17/22 21:58 07/17/22 20:00 Temperature 97.5 F L Pulse Rate 84 65 Respiratory Rate 18 Blood P
[2022-07-18 13:02] LABS: Iron 96 ug/dL (37-170); Percent Iron Saturation 39 % (20-50)
--- NOTE | 2022-07-18 13:44 | PM.PNCARD ---
Progress Note: A&P Assessment and Plan (1) CHF (congestive heart failure): Code(s): I50.9 - Heart failure, unspecified Status: Acute Assessment and Plan: Patient appears to be clinically euvolemic. Mild edema, no shortness of breath on room air denies orthopnea. -Reduce Lasix to 40 mg daily due to worsening renal function. Change to Lasix 80 mg p.o. daily. Monitor renal function electrolytes. Echocardiogram with preserved LV systolic function grade due to diastolic dysfunction mild LVH, unable to estimate PA systolic pressures. Dilated IVC. Patient will follow-up with [facility] for cardiology follow-up as an outpatient as previously set. (2) Hypertension: Code(s): I10 - Essential (primary) hypertension Status: Chronic Assessment and Plan: Uncontrolled presentation secondary to noncompliance with medications. Improved but she remains hypertensive. (3) Acute kidney injury superimposed on chronic kidney disease: Code(s): N17.9 - Acute kidney failure, unspecified; N18.9 - Chronic kidney disease, unspecified Status: Acute Assessment and Plan: Creatinine 06/25/2022 3.0 06/01/2022 creatinine 2.3-2.5. Acute on chronic kidney injury creatinine has risen to 3.5. Lasix reduced. Defer to primary service and Nephrology. Avoid nephrotoxic agents. Avoid NSAID therapy as much as possible due to worsening renal function, hypertension and CHF risk. BP control crucial. Nephrology consultation appreciated. (4) Anemia: Code(s): D64.9 - Anemia, unspecified Status: Acute Assessment and Plan: Chronic severe anemia. No evidence for active bleed. Defer management to primary service. H&H fairly stable. (5) COPD (chronic obstructive pulmonary disease): Code(s): J44.9 - Chronic obstructive pulmonary disease, unspecified Status: Acute Assessment and Plan: Per primary service. Clinically stable on room air. Outpatient sleep study. Follow-up with pulmonology as previously recommended. (6) Rheumatoid arthritis: Code(s): M06.9 - Rheumatoid arthritis, unspecified Status: Acute Assessment and Plan: Management per primary service. (7) Noncompliance: Code(s): Z91.199 - Patient's noncompliance with other medical treatment and regimen due to unspecified reason Status: Acute Assessment and Plan: Patient must remain compliant with medications, follow-up and recommendations. (8) Anxiety: Code(s): F41.9 - Anxiety disorder, unspecified Status: Acute Assessment and Plan: Per primary service. Subjective Date/time seen: Date of service: 07/18/22 13:44 Follow-up for shortness of breath hypertension Patient denies any new issues overnight. Denies shortness of breath. Edema stable. No chest pain or palpitations. Denies dizziness. Review of Systems Review of Systems: All systems reviewed & are unremarkable except as noted in HPI and below Constitutional: Constitutional: Reports as per HPI and Reports no additional constitutional complaints Eyes: Eyes: Reports as per HPI and Reports no additional eye complaints ENT: Reports system reviewed and no additional complaints, except as documented and Reports as per HPI Cardiovascular: Cardiovascular: Reports as per HPI and Reports no additional cardiovascular complaints Respiratory: Respiratory: Reports as per HPI and Reports no additional respiratory complaints Gastrointestinal: Gastrointestinal: Reports as per HPI and Reports no additional gastrointestinal complaints Genitourinary: Genitourinary: Reports as per HPI Musculoskeletal: Musculoskeletal: Reports no additional musculoskeletal complaints and Reports as per HPI Integumentary/Breasts: Skin/Breast: Reports system reviewed and no additional complaints, except as docu and Reports as per HPI Neurologic: Reports system reviewed and no additional complaints, except as documente
--- NOTE | 2022-07-18 15:30 | P.PNNP_ITS ---
Progress Note: A&P Assessment and Plan (1) CKD (chronic kidney disease): Code(s): N18.9 - Chronic kidney disease, unspecified Status: Chronic Assessment and Plan: * evidence of renal insufficiency/kidney disease that dates back to March 2022 * creatinine has ranged from 2.2 - 3.3mg/dl in that time frame * has seen several nephrologists in that time frame (Dr. Lara, Dr. Vidal, [facility], and Dr. Lara) * from review of electronic records, summary is as follows: * creatinine in June 2021 was normal (0.9mg/dl) * creatinine in March 2022 was 2.2mg/dl * creatinine 2.3 - 2.4mg/dl in April 2022 * creatinine 3.19mg/dl in May 2022 * creatinine 3.0 - 3.3mg/dl in June 2022 * extensive testing/serological work-up done on April 2022 * NORA/GBM Antibody/ANCA/SEASONAL SALES ASSOCIATE/Sjogren's (SSA/SSB)/García (ABBI)/Antiscleroderma- 70 Antibody -- all negative * Complement C3/Complement C4 -- negative * Cryoblobulin negative * Anti-PLA2R negative * no evidence of paraproteinemia by SPEP * known history of high dose NSAID use for the last several years * Upro [id number] * she is suppose to follow-up with Dr. Lara following her hospitalization at [facility] (from June 2022) * suspect hypertension and possibly chronic NSAID use to blame for CKD * gfr stable now. * I agree with Dr Lara continuing the eval of the kidneys as an outpatient (incl biopsy). (2) Hypertension: Code(s): I10 - Essential (primary) hypertension Status: Chronic Assessment and Plan: * uncontrolled on admission * now bp running in the 140s and 150s. * on amlodipine, carvedilol, hydralazine (3) Anemia: Code(s): D64.9 - Anemia, unspecified Status: Acute Assessment and Plan: * possibly related to CKD * evidence of iron deficiency by anemia studies * tsat 39. no need for iron tx. * consider Epogen therapy as an outpatient. * hb bounces around about a mean of 8 (4) CHF (congestive heart failure): Code(s): I50.9 - Heart failure, unspecified Status: Acute Assessment and Plan: * Echo here and at other hospitals demonstrate diastolic dysfunction with preserved EF * Cardiology recommendations noted * resumed of oral diuretics * follow I/Os and daily weights (5) Noncompliance: Code(s): Z91.199 - Patient's noncompliance with other medical treatment and regimen due to unspecified reason Status: Acute Assessment and Plan: * followup with Dr Lara. Subjective Date/time seen: 07/18/22 15:30 Interval history: Patient is sitting up in bed. No chest pain or shortness of breath no swelling Review of Systems Cardiovascular: Cardiovascular: Reports no additional cardiovascular complaints Respiratory: Respiratory: Reports no additional respiratory complaints Gastrointestinal: Gastrointestinal: Reports no additional gastrointestinal complaints Genitourinary: Genitourinary: Reports no additional female genitourinary complaints Exam Narrative: WDWN in NAD skin no rash head ncat lungs clear cor reg no rub abd BS+ nontender and soft ext no edema. Objective Data Vital Signs Vital Signs: Vital Signs - 24 hr 07/17/22 16:00 07/17/22 20:02 07/17/22 21:58 Temperature 97.8 F 97.5 F L Pulse Rate 76 84 65 Respiratory Rate 16 18 Blood
--- NOTE | 2022-07-18 15:30 | PM.PNNEP ---
Progress Note: A&P Assessment and Plan (1) CKD (chronic kidney disease): Code(s): N18.9 - Chronic kidney disease, unspecified Status: Chronic Assessment and Plan: evidence of renal insufficiency/kidney disease that dates back to March 2022 creatinine has ranged from 2.2 - 3.3mg/dl in that time frame has seen several nephrologists in that time frame (Dr. Lara, Dr. Vidal, [facility], and Dr. Lara) from review of electronic records, summary is as follows: creatinine in June 2021 was normal (0.9mg/dl) creatinine in March 2022 was 2.2mg/dl creatinine 2.3 - 2.4mg/dl in April 2022 creatinine 3.19mg/dl in May 2022 creatinine 3.0 - 3.3mg/dl in June 2022 extensive testing/serological work-up done on April 2022 NORA/GBM Antibody/ANCA/[employer]/Sjogren's (SSA/SSB)/García (ABBI)/Antiscleroderma-70 Antibody -- all negative Complement C3/Complement C4 -- negative Cryoblobulin negative Anti-PLA2R negative no evidence of paraproteinemia by SPEP known history of high dose NSAID use for the last several years Upro [id number] she is suppose to follow-up with Dr. Lara following her hospitalization at [facility] (from June 2022) suspect hypertension and possibly chronic NSAID use to blame for CKD gfr stable now. I agree with Dr Lara continuing the eval of the kidneys as an outpatient (incl biopsy). (2) Hypertension: Code(s): I10 - Essential (primary) hypertension Status: Chronic Assessment and Plan: uncontrolled on admission now bp running in the 140s and 150s. on amlodipine, carvedilol, hydralazine (3) Anemia: Code(s): D64.9 - Anemia, unspecified Status: Acute Assessment and Plan: possibly related to CKD evidence of iron deficiency by anemia studies tsat 39. no need for iron tx. consider Epogen therapy as an outpatient. hb bounces around about a mean of 8 (4) CHF (congestive heart failure): Code(s): I50.9 - Heart failure, unspecified Status: Acute Assessment and Plan: Echo here and at other hospitals demonstrate diastolic dysfunction with preserved EF Cardiology recommendations noted resumed of oral diuretics follow I/Os and daily weights (5) Noncompliance: Code(s): Z91.199 - Patient's noncompliance with other medical treatment and regimen due to unspecified reason Status: Acute Assessment and Plan: followup with Dr Lara. Subjective Date/time seen: 07/18/22 15:30 Interval history: Patient is sitting up in bed. No chest pain or shortness of breath no swelling Review of Systems Cardiovascular: Cardiovascular: Reports no additional cardiovascular complaints Respiratory: Respiratory: Reports no additional respiratory complaints Gastrointestinal: Gastrointestinal: Reports no additional gastrointestinal complaints Genitourinary: Genitourinary: Reports no additional female genitourinary complaints Exam Narrative: WDWN in NAD skin no rash head ncat lungs clear cor reg no rub abd BS+ nontender and soft ext no edema. Objective Data Vital Signs Vital Signs: Vital Signs - 24 hr 07/17/22 16:00 07/17/22 20:02 07/17/22 21:58 Temperature 97.8 F 97.5 F L Pulse Rate 76 84 65 Respiratory Rate 16 18 Blood Pressure 142/73 H 149/76 H Pulse Oximetry 96 95 Oxygen Delivery 07/17/22 20:00 07/18/22 06:15 07/18/22 08:00 Temperature 98.2 F Pulse Rate 63 63 Respiratory Rate 18 18 Blood Pressure 153/77 H Pulse Oximetry 91 Oxygen Delivery Room Air 07/18/22 08:11 07/18/22 08:48 Temperature Pulse Rate 64 64 Respiratory Rate Blood Pressure Pulse Oximetry 96 Oxygen Delivery Room Air Intake/Output Intake/Output: Intake & Output 07/15/22 07/16/22 07/17/22 07/18/22 23:59 23:59 23:59 23:59 Intake Total 1650 802 390 Output Total 2600 500 700 Balance -950 302 -310 Meds/Results Medications: Act
[2022-07-18] MEDS: oxyCODONE/ACETAMINOPHEN (*CRX) 5-325 MG TABLET 1 TABLET PO (16:46)
[2022-07-18] MEDS: ATORVASTATIN 40 MG TABLET PO (20:16)
[2022-07-18] MEDS: traZODone HCL 50 MG TABLET PO (20:16)
[2022-07-18] MEDS: ACETAMINOPHEN 325 MG TABLET 650 MG PO (20:25)
[2022-07-18 22:15] LABS: Basophils Percent Auto 0.1 % (0.2-1.2); Hematocrit 24.9 % (37.0-47.0); Hemoglobin 7.6 g/dL (12.0-15.0); Immature Granulocyte Absolute 0.36 K/mm3 (0.00-0.031); Immature Granulocyte Percent A 2.6 % (0-0.5); Lymphocytes Absolute Auto 1.12 K/mm3 (0.9-3.2); Mean Corpuscular HGB Conc 30.5 g/dl (32-36); Mean Corpuscular Hemoglobin 28.6 pg (26-34); Mean Corpuscular Volume 93.6 fl (80-100); Mean Platelet Volume 11.6 fl (7.4-10.4); Monocytes Absolute Auto 0.3 K/mm3 (0.1-0.6); Monocytes Percent Auto 2.3 % (2.6-8.5); Neutrophils Absolute Auto 12.2 K/mm3 (1.3-6.7); Platelet Count Result 270 k/mm3 (150-375); Red Blood Count 2.66 M/mm3 (4.2-5.4); Red Cell Distribution Width 15.9 % (11.5-14.5); White Blood Count 14.1 K/mm3 (4.5-10.0)
[2022-07-19] MEDS: oxyCODONE/ACETAMINOPHEN (*CRX) 5-325 MG TABLET 1 TABLET PO (02:14)
[2022-07-19] MEDS: methylPREDNISolone SOD SUCC 40 MG VIAL IV PUSH (02:16)
[2022-07-19 06:00] VITALS: BP 138/75; PULSE 63; RESP 18; TEMP 36.7; O2SAT 96
[2022-07-19 06:56] LABS: Hematocrit 25.4 % (37.0-47.0); Hemoglobin 7.8 g/dL (12.0-15.0); Mean Corpuscular HGB Conc 30.7 g/dl (32-36); Mean Corpuscular Hemoglobin 29.3 pg (26-34); Mean Corpuscular Volume 95.5 fl (80-100); Mean Platelet Volume 11.9 fl (7.4-10.4); Platelet Count Result 274 k/mm3 (150-375); Red Blood Count 2.66 M/mm3 (4.2-5.4); Red Cell Distribution Width 15.9 % (11.5-14.5); White Blood Count 13.4 K/mm3 (4.5-10.0)
[2022-07-19 07:07] LABS: Albumin Level 3.5 g/dL (3.5-5.1); Anion Gap 9 mmol/L (8-16); Blood Urea Nitrogen 73 mg/dL (7-17); Carbon Dioxide 25 mmol/L (22-30); Chloride 104 mmol/L (98-107); Estimated CRCL calculation 24 ml/min; Estimated Glomerular Filt Rate 13; Glucose 143 mg/dL (65-110); Phosphorus 6.3 mg/dL (2.5-4.5); Potassium 4.2 mmol/L (3.4-5.0); Sodium 138 mmol/L (137-145)
[2022-07-19] MEDS: amLODIPine BESYLATE 5 MG TABLET 10 MG PO (08:48)
[2022-07-19] MEDS: hydrALAZINE HCL 50 MG TABLET 100 MG PO (08:48)
[2022-07-19] MEDS: CITALOPRAM HYDROBROMIDE 20 MG TABLET 40 MG PO (08:48)
[2022-07-19 08:49] VITALS: PULSE 60
[2022-07-19] MEDS: carvediloL 25 MG TABLET PO (08:49)
[2022-07-19] MEDS: FERROUS SULFATE 324 MG TABLET PO (08:49)
[2022-07-19] MEDS: CALCIUM CARBONATE (OSCAL) 500 MG TABLET PO (08:49)
[2022-07-19] MEDS: FAMOTIDINE 20 MG TABLET PO (08:49)
[2022-07-19] MEDS: PANTOPRAZOLE SODIUM IV 40 MG VIAL IV PUSH (08:51)
[2022-07-19] MEDS: FUROSEMIDE 40 MG TABLET PO (09:02)
[2022-07-19] MEDS: clonazePAM (*CRX) 0.5 MG TABLET PO (09:06)
[2022-07-19] MEDS: ALBUTEROL SULFATE NEB 2.5 MG/3 ML INH INHALATION (09:25)
[2022-07-19] MEDS: IPRATROPIUM BR 0.02% INH SOLN 0.5 MG/2.5 ML VIAL INHALATION (09:25)
[2022-07-19 09:26] VITALS: PULSE 63; RESP 16; O2SAT 97
[2022-07-19 09:38] VITALS: PULSE 62; RESP 16
[2022-07-19 10:49] LABS: EDCOVIDSCREEN Positive (Negative)
[2022-07-19 11:43] LABS: SARS-CoV-2 RNA PCR Negative
[2022-07-19 20:37] LABS: Osmolality, Urine 423 mOsm/kg (50-1200)
--- NOTE | 2022-07-23 15:46 | PM.DS ---
DS: Admitting Diagnosis Discharge Date 07/19/22 Admitting Diagnosis shortness of breath DS: Discharge Diagnosis Discharge Diagnosis (1) CHF (congestive heart failure): Code(s): I50.9 - Heart failure, unspecified Status: Acute Assessment and Plan: Acute CHF exacerbation Monitor intake and output IV Lasix Follow troponin Check TSH Check echo Cardiology consult 07/18/2022 interval history: morbidly obese patient presented emergency department with complaint shortness of breath and elevated BNP concerning for congestive heart failure however seen by cardiology does not suspect as patient is euvolemic most likely elevated BNP stemming from chronic kidney disease, uncontrolled hypertension to further evaluate, cardiac echo showed preserved LV function with EF 65% and grade 2 diastolic dysfunction, today seen personnel placement specialist reduced lasix to 40mg PO from 80mg PO upon discharge as patient kidney function is worsenign, patient with acute on chronic kidney disease, renal ultrasound is essentially normal, patient is seen by features reporter for further recommendation to follow. (2) Elevated serum creatinine: Code(s): R79.89 - Other specified abnormal findings of blood chemistry Status: Acute Assessment and Plan: Probable acute renal on top of chronic failure probably related to CHF exacerbation patient stated that she has history of chronic renal disease but she is not aware of for last creatinine number Ultmann renal function Give IV diuresis Check renal ultrasound Get old records (3) Anemia: Code(s): D64.9 - Anemia, unspecified Status: Acute Assessment and Plan: Unknown baseline creatinine Transfuse if hemoglobin below 7 Occult blood negative in ER Monitor H&H Check iron study B12 folic acid Give IV Protonix for now Clear liquid diet NPO after midnight (4) Hypertension: Code(s): I10 - Essential (primary) hypertension Status: Chronic Assessment and Plan: Pending home medication reconciliation (5) COPD (chronic obstructive pulmonary disease): Code(s): J44.9 - Chronic obstructive pulmonary disease, unspecified Status: Acute Assessment and Plan: Acute COPD exacerbation nebulizer treatment steroid antibiotics (6) Chest pain: Code(s): R07.9 - Chest pain, unspecified Status: Acute Assessment and Plan: Serial troponin Cardiology consult Discussed with ER physician Probably related to CHF and anemia Follow echo results (7) Rheumatoid arthritis: Code(s): M06.9 - Rheumatoid arthritis, unspecified Status: Acute Assessment and Plan: Patient on steroid at home DS: Summary Hospital Course Reason for hospitalization: 51 years old female with past medical history of hypertension CHF COPD hyperlipidemia chronic narcotic dependence presented to the hospital with shortness of breath started 3 days ago worsening gradually worsening with activity patient also have chest tightness aggravated with activity no radiation patient complains of intermittent cough she also have lower extremity edema at the ER patient was found to have BNP more than 10,000 creatinine of 3 hemoglobin of 7 patient was admitted to the hospital for evaluation and treatment of CHF exacerbation associated with probable acute renal failure and anemia Hospital Course: morbidly obese patient presented emergency department with complaint shortness of breath and elevated BNP concerning for congestive heart failure however seen by cardiology does not suspect as patient is euvolemic most likely elevated BNP stemming from chronic kidney disease, uncontrolled hypertension to further evaluate, cardiac echo showed preserved LV function with EF 65% and grade 2 diastolic dysfunction, today seen personnel placement specialist reduced lasix to 40mg PO from 80mg PO upon discharge as patient kidney function is worsenign, ? patient with acute on chronic kidney disease, renal ultrasound is es
== END 2022-07-19 12:00 | DRG 194 ==
LOC: ANHED 07-16 00:45 → ANHIMU 07-16 02:37 → ANH3MEDSUR 07-17 17:27
PROVIDERS: Internal Medicine Nephrology; Admitting Provider Internal Medicine; Emergency Provider Emergency Medicine; Visit Provider Family Medicine
DX: I13.0 Hypertensive heart and chronic kidney disease with heart failure and stage 1 through stage 4 chronic kidney disease, or unspecified chronic kidney disease (principal); N17.9 Acute kidney failure, unspecified; F11.20 Opioid dependence, uncomplicated; E66.01 Morbid (severe) obesity due to excess calories; I50.33 Acute on chronic diastolic (congestive) heart failure; E78.5 Hyperlipidemia, unspecified; J44.1 Chronic obstructive pulmonary disease with (acute) exacerbation; N18.9 Chronic kidney disease, unspecified; D63.1 Anemia in chronic kidney disease; D50.9 Iron deficiency anemia, unspecified; Z20.822 Contact with and (suspected) exposure to COVID-19; M06.9 Rheumatoid arthritis, unspecified; F41.9 Anxiety disorder, unspecified; Z91.199 Patient's noncompliance with other medical treatment and regimen due to unspecified reason; Z68.41 Body mass index [BMI] 40.0-44.9, adult
CPT/HCPCS: 36415; 71046; 76775; 80053; 80069; 81001; 81002; 81050; 82306; 82550; 82570; 82728; 83540; 83550; 83735; 83880; 83935; 83970; 84133; 84156; 84300; 84443; 84484; 84550; 85014; 85018; 85025; 85027; 85610; 85730; 87426; 93005; 93306; 94640; 96365; 96374; 96375; 96376; 97161; 97165; 99285; A9270; C9113; C9803; G0378; G0379; J0696; J1940; J2920; U0003; U0005